=== PATIENT | female | born 1975 | race Caucasian/White ===

== ENCOUNTER 2021-10-14 22:29 | Inpatient (IN) ==
[2021-10-14] MEDS ORDERED: LABETALOL 20 MG/4 ML SYRINGE IV STA (22:53)
[2021-10-14 22:58] LABS: Basophils % 0.4 % (0.0-0.8); Eosinophils # 0.3 10*3/uL (0.0-0.87); Eosinophils % 3.1 % (0.00-10.9); Hematocrit 33.7 VOL% (35.7-47.0); Hemoglobin 10.6 GM/DL (12.0-16.0); Immature Granulocytes % 0.2 %; Immature Granulocytes Absolute 0.02 #; Lymphocytes # 2.5 10*3/uL (1.4-4.0); Lymphocytes % 25.1 % (21.3-54.2); Mean Corpuscular HGB Conc 31.5 GM/DL (32-36); Mean Corpuscular Volume 78.2 FL (87-102); Monocytes # 0.8 10*3/uL (0.11-0.8); Neutrophils % 63.2 % (38.7-73.9); Platelet Count 273 T/CUMM (130-400); Red Blood Count 4.31 MC/CUMM (3.8-5.5); Red Cell Distribution Width 17.7 % (9.3-17.3); White Blood Count 9.9 T/CUMM (4-12)
[2021-10-14 23:27] LABS: INR 3.1; PT Patient Result 31.9 SECS (10.5-12.0); Partial Thromboplastin Time 48.7 SECS (23.7-32.9)
[2021-10-14 23:30] LABS: Bacteria,Urine Occasional /HPF (Few); RBC,Urine 1223 /HPF (0-4); Squamous Epithelial Cell,Urine Occasional /HPF (0-10)
[2021-10-14 23:31] LABS: Bilirubin,Urine Negative (Negative); Blood, Urine Large mg/dL (Negative); Glucose,Urine (UA) Negative (Negative); Ketones,Urine Negative (Negative); Nitrite,Urine Negative (Negative); Protein,Urine >=300 mg/dL (Negative); Urine Appearance Clear (Clear); Urine Color Dark yellow (Yellow); Urine Urobilinogen 0.2 eU/dL (<2.0)
[2021-10-14] MEDS ORDERED: ONDANSETRON 4 MG/2 ML VIAL IV ONE (23:36)
[2021-10-14] MEDS ORDERED: MORPHINE 2 MG/1 ML SYRINGE IV STA (23:36)
[2021-10-14 23:41] LABS: Bilirubin,Total 0.5 MG/DL (0.20-1.00); Calcium 8.2 MG/DL (8.5-10.1); Osmolality,Calculated 281.1 MOS/KG (273-304); Potassium 3.1 MMOL/L (3.5-5.1); Total Protein 6.8 G/DL (6.4-8.2)
[2021-10-14] MEDS ORDERED: POTASSIUM CHLORIDE 20 MEQ TABLET PO STA (23:46)
[2021-10-14] MEDS ORDERED: hydrALAZINE 20 MG/1 ML VIAL IV STA (23:47)
[2021-10-15] MEDS ORDERED: POTASSIUM CHLORIDE 20 MEQ TABLET PO STA (00:33)
[2021-10-15] MEDS ORDERED: GLUCAGON 1 MG VIAL IM PRN (01:20)
[2021-10-15] MEDS ORDERED: LACTATED RINGERS 1,000 ML IV SCH (01:30)
[2021-10-15] MEDS ORDERED: DEXTROSE 10% 250 ML BAG IV PRN (01:40)
[2021-10-15] MEDS ORDERED: hydrALAZINE 20 MG/1 ML VIAL IV PRN (01:48)
[2021-10-15 06:09] LABS: Basophils # 0.1 10*3/uL (0.0-0.2); Basophils % 0.5 % (0.0-0.8); Eosinophils # 0.2 10*3/uL (0.0-0.87); Eosinophils % 2.3 % (0.00-10.9); Hematocrit 32.4 VOL% (35.7-47.0); Immature Granulocytes % 0.3 %; Immature Granulocytes Absolute 0.03 #; Lymphocytes # 1.7 10*3/uL (1.4-4.0); Lymphocytes % 15.8 % (21.3-54.2); Mean Corpuscular HGB Conc 30.9 GM/DL (32-36); Mean Corpuscular Volume 78.6 FL (87-102); Mean Platelet Volume 11.8 FL (9.6-12.0); Monocytes # 0.8 10*3/uL (0.11-0.8); Monocytes % 7.5 % (1.7-12.7); Neutrophils % 73.6 % (38.7-73.9); Platelet Count 262 T/CUMM (130-400); Red Blood Count 4.12 MC/CUMM (3.8-5.5); Red Cell Distribution Width 17.7 % (9.3-17.3); White Blood Count 10.7 T/CUMM (4-12)
[2021-10-15 06:34] LABS: Alanine Aminotransferase 23 U/L (13-56); Albumin 2.8 G/DL (3.4-5.0); Alkaline Phosphatase 115 U/L (45-117); Aspartate Amino Transferase 31 U/L (0-37); Blood Urea Nitrogen 10 MG/DL (7-18); Calcium 8.3 MG/DL (8.5-10.1); Carbon Dioxide 26 MMOL/L (21-32); Chloride 107 MMOL/L (98-107); Glucose 95 MG/DL (74-106); Osmolality,Calculated 281.1 MOS/KG (273-304); Potassium 2.8 MMOL/L (3.5-5.1); Sodium 142 MMOL/L (136-145); Total Protein 6.9 G/DL (6.4-8.2)
[2021-10-15] MEDS: LEVOTHYROXINE 75 MCG TABLET PO SCH (06:34)
[2021-10-15] MEDS ORDERED: carvediloL 3.125 MG TABLET PO SCH (09:00)
[2021-10-15] MEDS ORDERED: lisinopriL 2.5 MG TABLET PO SCH (09:00)
[2021-10-15] MEDS ORDERED: lisinopriL 2.5 MG TABLET PO ONE (09:16)
[2021-10-15] MEDS: POTASSIUM BICARB EFFERVESCENT 20 MEQ TAB.EFF PO SCH ×2 (10:14→18:56)
[2021-10-15] MEDS: CITALOPRAM 20 MG TABLET PO SCH (10:15)
[2021-10-15] MEDS: SPIRONOLACTONE 25 MG TABLET PO SCH ×2 (10:15→22:02)
[2021-10-15] MEDS: carvediloL 12.5 MG TABLET PO SCH ×2 (10:15→22:02)
[2021-10-15] MEDS ORDERED: ONDANSETRON 4 MG/2 ML VIAL IV PRN (10:41)
[2021-10-15] MEDS ORDERED: WARFARIN 7.5 MG TABLET PO SCH (18:00)
[2021-10-15] MEDS: POTASSIUM CHLORIDE 20 MEQ TABLET PO PRN (18:56)
[2021-10-16] MEDS: POTASSIUM CHLORIDE 20 MEQ TABLET PO PRN (00:11)
[2021-10-16] MEDS: POTASSIUM BICARB EFFERVESCENT 20 MEQ TAB.EFF PO SCH (01:27)
[2021-10-16 05:10] LABS: Basophils # 0.1 10*3/uL (0.0-0.2); Basophils % 0.6 % (0.0-0.8); Eosinophils # 0.3 10*3/uL (0.0-0.87); Eosinophils % 3.5 % (0.00-10.9); Hemoglobin 9.4 GM/DL (12.0-16.0); Immature Granulocytes % 0.6 %; Immature Granulocytes Absolute 0.05 #; Lymphocytes # 2.4 10*3/uL (1.4-4.0); Lymphocytes % 26.9 % (21.3-54.2); Mean Corpuscular HGB Conc 30.3 GM/DL (32-36); Mean Corpuscular Volume 80.1 FL (87-102); Mean Platelet Volume 11.8 FL (9.6-12.0); Monocytes # 0.7 10*3/uL (0.11-0.8); Monocytes % 7.3 % (1.7-12.7); Neutrophils % 61.1 % (38.7-73.9); Platelet Count 237 T/CUMM (130-400); Red Blood Count 3.87 MC/CUMM (3.8-5.5); White Blood Count 8.9 T/CUMM (4-12)
[2021-10-16 05:16] LABS: INR 2.6; PT Patient Result 26.9 SECS (10.5-12.0)
[2021-10-16 05:26] LABS: Albumin 2.7 G/DL (3.4-5.0); Bilirubin,Total 0.4 MG/DL (0.20-1.00); Calcium 8.2 MG/DL (8.5-10.1); Osmolality,Calculated 277.4 MOS/KG (273-304); Potassium 3.2 MMOL/L (3.5-5.1); Total Protein 6.2 G/DL (6.4-8.2)
[2021-10-16 05:41] LABS: Free T4 (Free Thyroxine) 1.24 NG/DL (0.76-1.46); Thyroid Stimulating Hormone 7.18 uIU/ml (0.358-3.74)
[2021-10-16] MEDS: LEVOTHYROXINE 75 MCG TABLET PO SCH (07:08)
[2021-10-16] MEDS: carvediloL 12.5 MG TABLET PO SCH (08:59)
[2021-10-16] MEDS: CITALOPRAM 20 MG TABLET PO SCH (08:59)
[2021-10-16] MEDS: SPIRONOLACTONE 25 MG TABLET PO SCH (08:59)
[2021-10-16] MEDS ORDERED: lisinopriL 5 MG TABLET PO SCH (09:00)
[2021-10-16] MEDS ORDERED: amLODIPine 5 MG TABLET PO SCH (09:00)
[2021-10-16] MEDS ORDERED: amLODIPine 10 MG TABLET PO SCH (09:00)
[2021-10-16 12:13] VITALS: BP 149/79
== END 2021-10-16 13:03 | disposition home or self-care (01) | DRG 305 ==
LOC: N.EDINP 22:29 → N.ED 22:29 → SUATTDRO 10-15 01:20 → N.EDINP 10-15 03:00 → N.TELEN 10-15 03:54 → SUATTDRO 10-15 08:32
PROVIDERS: ADMIT Family Medicine; ATTEND Emergency Medicine

== ENCOUNTER 2021-12-04 19:13 | Inpatient (IN) ==
[2021-12-04] MEDS ORDERED: ONDANSETRON 4 MG/2 ML VIAL IV PRN (20:11)
[2021-12-04] MEDS ORDERED: ALUMINUM/MAGNES/SIMETH MAX STR 30 ML UDCUP PO PRN (20:11)
[2021-12-04] MEDS ORDERED: ACETAMINOPHEN 325 MG TABLET PO PRN (20:11)
[2021-12-04] MEDS ORDERED: DEXTROSE 10% 250 ML BAG IV PRN (20:11)
[2021-12-04] MEDS ORDERED: hydrALAZINE 20 MG/1 ML VIAL IV PRN (20:11)
[2021-12-04] MEDS ORDERED: GLUCAGON 1 MG VIAL IM PRN (20:11)
[2021-12-04] MEDS ORDERED: VANCOMYCIN INJ 1,500 MG in SODIUM CHLORIDE 0.9% 500 ML IV PRN (21:00)
[2021-12-04] MEDS ORDERED: FUROSEMIDE 40 MG/4 ML VIAL IV SCH (21:08)
[2021-12-04 21:15] LABS: Basophils # 0.1 10*3/uL (0.0-0.2); Basophils % 0.2 % (0.0-0.8); Eosinophils # 0.1 10*3/uL (0.0-0.87); Eosinophils % 0.2 % (0.00-10.9); Hematocrit 25.9 VOL% (35.7-47.0); Immature Granulocytes % 1.7 %; Immature Granulocytes Absolute 0.54 #; Lymphocytes # 3.5 10*3/uL (1.4-4.0); Lymphocytes % 11.2 % (21.3-54.2); Mean Corpuscular HGB Conc 30.9 GM/DL (32-36); Mean Corpuscular Volume 83.8 FL (87-102); Mean Platelet Volume 12.1 FL (9.6-12.0); Monocytes # 2.3 10*3/uL (0.11-0.8); Monocytes % 7.5 % (1.7-12.7); Neutrophils % 79.2 % (38.7-73.9); Platelet Count 286 T/CUMM (130-400); Red Blood Count 3.09 MC/CUMM (3.8-5.5); Red Cell Distribution Width 18.1 % (9.3-17.3)
[2021-12-04 21:32] LABS: INR 2.8; PT Patient Result 28.7 SECS (10.1-12.1)
[2021-12-04 21:40] LABS: Calcium 8.6 MG/DL (8.5-10.1); Osmolality,Calculated 274.2 MOS/KG (273-304); Potassium 5.5 MMOL/L (3.5-5.1); Thyroid Stimulating Hormone 1.91 uIU/ml (0.358-3.74)
[2021-12-04 21:45] LABS: Lymphocytes 12 % (20-55); Total Cells Counted 100
[2021-12-04 21:47] LABS: Ovalocytes Slight
[2021-12-04 21:52] LABS: Platelet Estimate Normal
[2021-12-04] MEDS ORDERED: VANCOMYCIN INJ 2,000 MG in SODIUM CHLORIDE 0.9% 500 ML IV ONE (21:53)
[2021-12-04] MEDS ORDERED: MEROPENEM 2,000 MG in SODIUM CHLORIDE 0.9% 100 ML IV SCH (22:00)
[2021-12-04] MEDS: carvediloL 12.5 MG TABLET PO SCH (22:06)
[2021-12-04] MEDS: DOCUSATE SODIUM 100 MG CAPSULE PO SCH (22:06)
[2021-12-04] MEDS ORDERED: VANCOMYCIN INJ 2,500 MG in SODIUM CHLORIDE 0.9% 500 ML IV ONE (23:00)
[2021-12-04] MEDS: MEROPENEM 500 MG in SODIUM CHLORIDE 0.9% 100 ML IV SCH (23:03)
[2021-12-05] MEDS: ALBUTEROL 2.5 MG/3 ML NEB RESP TX SCH ×5 (00:37→18:44)
[2021-12-05] MEDS ORDERED: VANCOMYCIN INJ 1,500 MG in SODIUM CHLORIDE 0.9% 250 ML IV PRN (01:00)
[2021-12-05] MEDS ORDERED: ALBUTEROL 2.5 MG/3 ML NEB RESP TX SCH (01:00)
[2021-12-05 01:54] LABS: Arterial Base Excess iSTAT -5 MMOL/L (-2.5-2.5); Arterial Bicarbonate iSTAT 18.2 MMOL/L (20-26); Arterial O2 Saturation iSTAT 97 % (95-100); Arterial PCO2 iSTAT 27 MM HG (35-48); Arterial PO2 iSTAT 90 MM HG (80-95); Arterial Total CO2 iSTAT 19 MMO/L (23-27); Arterial pH iSTAT 7.434 (7.35-7.45)
[2021-12-05] MEDS ORDERED: FUROSEMIDE INJ 200 MG in SODIUM CHLORIDE 0.9% 50 ML IV ONE (02:22)
[2021-12-05 04:21] LABS: Basophils % 0.1 % (0.0-0.8); Hematocrit 24.3 VOL% (35.7-47.0); Hemoglobin 7.4 GM/DL (12.0-16.0); Immature Granulocytes % 1.4 %; Immature Granulocytes Absolute 0.34 #; Lymphocytes % 12.6 % (21.3-54.2); Mean Corpuscular HGB Conc 30.5 GM/DL (32-36); Mean Corpuscular Volume 83.5 FL (87-102); Monocytes # 1.8 10*3/uL (0.11-0.8); Monocytes % 7.5 % (1.7-12.7); Neutrophils % 78.4 % (38.7-73.9); Platelet Count 249 T/CUMM (130-400); Red Blood Count 2.91 MC/CUMM (3.8-5.5); Red Cell Distribution Width 18.2 % (9.3-17.3); White Blood Count 23.9 T/CUMM (4-12)
[2021-12-05 04:31] LABS: INR 2.9; PT Patient Result 30.1 SECS (10.1-12.1)
[2021-12-05 04:41] LABS: Hypochromia Slight; Lymphocytes 13 % (20-55); Microcytosis Slight; Platelet Estimate Adequate; Total Cells Counted 100
[2021-12-05 05:01] LABS: Vitamin B12 719 PG/ML (211-911)
[2021-12-05 05:47] LABS: Sedimentation Rate-Westergren 134 MM/HR (0-20)
[2021-12-05] MEDS: LEVOTHYROXINE 75 MCG TABLET PO SCH (06:24)
[2021-12-05 08:34] LABS: Calcium 8.5 MG/DL (8.5-10.1); Osmolality,Calculated 275.2 MOS/KG (273-304); Potassium 5.6 MMOL/L (3.5-5.1)
[2021-12-05] MEDS: carvediloL 12.5 MG TABLET PO SCH ×2 (08:48→16:29)
[2021-12-05] MEDS: ASPIRIN 325 MG TABLET PO SCH (08:48)
[2021-12-05] MEDS: DOCUSATE SODIUM 100 MG CAPSULE PO SCH ×2 (08:48→20:55)
[2021-12-05] MEDS ORDERED: PANTOPRAZOLE 40 MG TABLET PO SCH (09:00)
[2021-12-05] MEDS ORDERED: CITALOPRAM 20 MG TABLET PO SCH (09:00)
[2021-12-05] MEDS ORDERED: lisinopriL 5 MG TABLET PO SCH (09:00)
[2021-12-05] MEDS ORDERED: amLODIPine 10 MG TABLET PO SCH (09:00)
[2021-12-05 10:14] LABS: Hemoglobin A1 (Alkaline) 98.1 % (96.5-98.5); Hemoglobin A2 (Alkaline) 1.9 % (1.5-3.5)
[2021-12-05] MEDS: MEROPENEM 500 MG in SODIUM CHLORIDE 0.9% 100 ML IV SCH ×2 (10:15→23:31)
[2021-12-05 12:01] LABS: Arterial Base Excess iSTAT -8 MMOL/L (-2.5-2.5); Arterial Bicarbonate iSTAT 16.6 MMOL/L (20-26); Arterial O2 Saturation iSTAT 99 % (95-100); Arterial PCO2 iSTAT 28 MM HG (35-48); Arterial PO2 iSTAT 153 MM HG (80-95); Arterial Total CO2 iSTAT 17 MMO/L (23-27); Arterial pH iSTAT 7.389 (7.35-7.45)
[2021-12-05] MEDS ORDERED: SODIUM POLYSTYRENE SULFATE 15 GM/60 ML BOTTLE PO ONE (13:20)
[2021-12-05 13:55] LABS: Hepatitis B Core IgM Quant 0.17 Index; Hepatitis B Surface Ag Quant < 0.10 Index; Hepatitis B Surface Ag Result Non-Reactive (NonReactive); Hepatitis C Virus Ab Quant 0.73 Index; Hepatitis C Virus Ab Result Non-Reactive (NonReactive)
[2021-12-05] MEDS ORDERED: SODIUM CHLORIDE 0.9% 500 ML IV ONE (15:08)
[2021-12-05 15:14] LABS: % Iron Saturation 22.9 % (18-50)
[2021-12-05] MEDS ORDERED: ATROPINE 1 MG/10 ML SYRINGE IV ONE (15:28)
[2021-12-05] MEDS ORDERED: MIDAZOLAM 10 MG/2 ML VIAL ONE ×2 (15:30→15:52)
[2021-12-05] MEDS: DOPamine 800 MG/250 ML PREMIX IV PRN ×2 (15:30→21:09)
[2021-12-05] MEDS ORDERED: ETOMIDATE 20 MG/10 ML VIAL IV ONE ×3 (15:30→15:37)
[2021-12-05] MEDS ORDERED: MIDAZOLAM 2 MG/2 ML VIAL IV ONE ×4 (15:36→15:59)
[2021-12-05] MEDS ORDERED: CALCIUM CHLORIDE 1,000 MG/10 ML SYRINGE IV ONE ×2 (16:00→16:13)
[2021-12-05 16:02] LABS: ABG Base Excess -13.1 MMOL/L (-2.5-2.5); ABG HCO3 14.3 MMOL/L (20-26); ABG Oxygen Saturation 98.3 % (95-100); ABG PCO2 33.9 MM HG (35-48); ABG PH 7.219 (7.35-7.45); ABG TCO2 12.9 MMOL/L (23-27)
[2021-12-05 16:03] LABS: Basophils % 0.1 % (0.0-0.8); Hematocrit 23.5 VOL% (35.7-47.0); Hemoglobin 7.1 GM/DL (12.0-16.0); Immature Granulocytes % 3.3 %; Immature Granulocytes Absolute 0.74 #; Lymphocytes # 2.7 10*3/uL (1.4-4.0); Lymphocytes % 11.8 % (21.3-54.2); Mean Corpuscular HGB Conc 30.2 GM/DL (32-36); Mean Corpuscular Volume 85.1 FL (87-102); Mean Platelet Volume 12.2 FL (9.6-12.0); Monocytes # 1.9 10*3/uL (0.11-0.8); Monocytes % 8.6 % (1.7-12.7); Neutrophils % 76.2 % (38.7-73.9); Platelet Count 224 T/CUMM (130-400); Red Blood Count 2.76 MC/CUMM (3.8-5.5); Red Cell Distribution Width 18.4 % (9.3-17.3); White Blood Count 22.5 T/CUMM (4-12)
[2021-12-05] MEDS ORDERED: SODIUM BICARBONATE 50 MEQ/50 ML VIAL IV ONE ×3 (16:06→16:57)
[2021-12-05] MEDS ORDERED: fentaNYL 100 MCG/2 ML VIAL IV ONE (16:08)
[2021-12-05] MEDS ORDERED: fentaNYL 100 MCG/2 ML VIAL ONE (16:08)
[2021-12-05] MEDS ORDERED: PHENYLEPHRINE DRIP 40 MG/250 ML PREMIX IV ONE (16:11)
[2021-12-05] MEDS: PHENYLEPHRINE DRIP 40 MG/250 ML PREMIX IV PRN (16:13)
[2021-12-05] MEDS: MIDAZOLAM 100 MG in SODIUM CHLORIDE 0.9% 80 ML IV PRN (16:15)
[2021-12-05 16:19] LABS: Bilirubin,Direct 0.31 MG/DL (0.0-0.20)
[2021-12-05 16:22] LABS: Anisocytosis 1+; Band Neutrophils 11 % (0-10); Eosinophils 1 % (0-10); Lymphocytes 12 % (20-55); Platelet Estimate Normal; Total Cells Counted 100
[2021-12-05 16:23] LABS: Hypochromia 1+
[2021-12-05 16:50] LABS: Albumin 1.6 G/DL (3.4-5.0); Bilirubin,Total 0.9 MG/DL (0.20-1.00); Calcium 7.8 MG/DL (8.5-10.1); Total Protein 5.7 G/DL (6.4-8.2)
[2021-12-05 16:51] LABS: Osmolality,Calculated 286.1 MOS/KG (273-304)
[2021-12-05] MEDS ORDERED: INSULIN REGULAR 10 UNIT, CALCIUM GLUCONATE 1,000 MG in DEXTROSE 10% 250 ML IV ONE (16:52)
[2021-12-05] MEDS ORDERED: AMIODARONE 450 MG/9 ML VIAL IV ONE (17:00)
[2021-12-05] MEDS ORDERED: AMIODARONE INJ 300 MG in DEXTROSE 5% 100 ML IV ONE (17:00)
[2021-12-05] MEDS ORDERED: SODIUM POLYSTYRENE SULFATE 15 GM/60 ML BOTTLE PO STA (17:13)
[2021-12-05] MEDS: fentaNYL INJ 1,250 MCG in SODIUM CHLORIDE 0.9% 225 ML IV PRN (17:13)
[2021-12-05] MEDS ORDERED: ALBUMIN 25% 25 GM/100 ML VIAL IV ONE (17:23)
[2021-12-05] MEDS ORDERED: AMIODARONE INJ 450 MG in DEXTROSE 5% 241 ML IV SCH (17:30)
[2021-12-05] MEDS ORDERED: WARFARIN 7.5 MG TABLET PO SCH (18:00)
[2021-12-05] MEDS ORDERED: HEPARIN 10,000 UNIT/10 ML VIAL IV SCH (21:00)
[2021-12-05 22:12] LABS: ABG Base Excess -2.6 MMOL/L (-2.5-2.5); ABG HCO3 22.2 MMOL/L (20-26); ABG Oxygen Saturation 99.2 % (95-100); ABG PCO2 43.7 MM HG (35-48); ABG PH 7.332 (7.35-7.45); ABG TCO2 21.7 MMOL/L (23-27)
[2021-12-05] MEDS: AMIODARONE INJ 450 MG in DEXTROSE 5% 241 ML IV SCH (23:19)
[2021-12-06] MEDS: ALBUTEROL 2.5 MG/3 ML NEB RESP TX SCH ×3 (01:11→14:00)
[2021-12-06] MEDS: MIDAZOLAM 100 MG in SODIUM CHLORIDE 0.9% 80 ML IV PRN (01:22)
[2021-12-06] MEDS: fentaNYL INJ 1,250 MCG in SODIUM CHLORIDE 0.9% 225 ML IV PRN ×2 (01:31→10:05)
[2021-12-06] MEDS: AMIODARONE INJ 450 MG in DEXTROSE 5% 241 ML IV SCH ×2 (02:18→09:01)
[2021-12-06] MEDS: PHENYLEPHRINE DRIP 40 MG/250 ML PREMIX IV PRN ×2 (03:34→09:27)
[2021-12-06 03:38] VITALS: BP 90/54
[2021-12-06] MEDS: DOPamine 800 MG/250 ML PREMIX IV PRN ×4 (03:42→14:33)
[2021-12-06 03:55] LABS: ABG Base Excess -4.1 MMOL/L (-2.5-2.5); ABG Oxygen Saturation 98.6 % (95-100); ABG PCO2 48.5 MM HG (35-48); ABG PH 7.276 (7.35-7.45); ABG TCO2 21.6 MMOL/L (23-27); Basophils % 0.2 % (0.0-0.8); Hematocrit 22.6 VOL% (35.7-47.0); Immature Granulocytes % 1.8 %; Immature Granulocytes Absolute 0.36 #; Lymphocytes # 4.6 10*3/uL (1.4-4.0); Lymphocytes % 22.3 % (21.3-54.2); Mean Corpuscular Volume 83.4 FL (87-102); Mean Platelet Volume 12.1 FL (9.6-12.0); Monocytes # 1.9 10*3/uL (0.11-0.8); Monocytes % 9.4 % (1.7-12.7); NRBC # 0.11 10*3/uL; Neutrophils % 66.3 % (38.7-73.9); Platelet Count 264 T/CUMM (130-400); Red Blood Count 2.71 MC/CUMM (3.8-5.5); Red Cell Distribution Width 18.1 % (9.3-17.3); White Blood Count 20.6 T/CUMM (4-12)
[2021-12-06 04:05] LABS: INR 4.5
[2021-12-06] MEDS ORDERED: SODIUM BICARBONATE 50 MEQ/50 ML VIAL IV ONE ×3 (04:14→13:13)
[2021-12-06 04:15] LABS: Band Neutrophils 1 % (0-10); Hypochromia Slight; Lymphocytes 27 % (20-55); Total Cells Counted 100
[2021-12-06 04:16] LABS: Microcytosis 1+; Ovalocytes Slight; Platelet Estimate Normal
[2021-12-06 04:29] LABS: Albumin 1.6 G/DL (3.4-5.0); Bilirubin,Total 0.8 MG/DL (0.20-1.00); Potassium 5.4 MMOL/L (3.5-5.1); Risk Ratio 4.35; Total Protein 5.8 G/DL (6.4-8.2)
[2021-12-06] MEDS: LEVOTHYROXINE 75 MCG TABLET PO SCH (05:10)
[2021-12-06 05:23] LABS: ABG Base Excess -2.3 MMOL/L (-2.5-2.5); ABG HCO3 22.5 MMOL/L (20-26); ABG Oxygen Saturation 98.7 % (95-100); ABG PCO2 40.6 MM HG (35-48); ABG TCO2 21.7 MMOL/L (23-27)
[2021-12-06] MEDS ORDERED: ROSUVASTATIN 20 MG TABLET PO SCH (09:00)
[2021-12-06] MEDS ORDERED: PANTOPRAZOLE 40 MG VIAL IV SCH (09:00)
[2021-12-06] MEDS: DOCUSATE SODIUM 100 MG CAPSULE PO SCH (09:01)
[2021-12-06] MEDS: ASPIRIN 325 MG TABLET PO SCH (09:01)
[2021-12-06] MEDS: carvediloL 12.5 MG TABLET PO SCH (09:01)
[2021-12-06] MEDS ORDERED: PHENYLEPHRINE INJ 160 MG in SODIUM CHLORIDE 0.9% 234 ML IV PRN (09:25)
[2021-12-06 10:14] LABS: ABG Base Excess -6.7 MMOL/L (-2.5-2.5); ABG HCO3 18.8 MMOL/L (20-26); ABG Oxygen Saturation 95.4 % (95-100); ABG PCO2 36.3 MM HG (35-48); ABG PH 7.321 (7.35-7.45); ABG PO2 94.4 MM HG (80-95); ABG TCO2 17.7 MMOL/L (23-27)
[2021-12-06] MEDS ORDERED: HYDROCORTISONE 100 MG VIAL IV SCH (10:30)
[2021-12-06] MEDS ORDERED: VASOPRESSIN 100 UNITS in SODIUM CHLORIDE 0.9% 95 ML IV PRN (10:36)
[2021-12-06] MEDS ORDERED: SODIUM CHLORIDE 0.9% 1,000 ML IV PRN (10:52)
[2021-12-06 11:24] LABS: Calcium 7.7 MG/DL (8.5-10.1); Osmolality,Calculated 283.4 MOS/KG (273-304)
[2021-12-06] MEDS ORDERED: SODIUM POLYSTYRENE SULFATE 15 GM/60 ML BOTTLE PO STA (11:32)
[2021-12-06] MEDS ORDERED: CALCIUM GLUCONATE 2,000 MG in SODIUM CHLORIDE 0.9% 100 ML IV ONE (12:00)
[2021-12-06] MEDS ORDERED: ALBUMIN 25% 25 GM/100 ML VIAL IV ONE ×2 (12:39→12:41)
[2021-12-06] MEDS ORDERED: MORPHINE 2 MG/1 ML SYRINGE ONE (14:45)
[2021-12-06] MEDS ORDERED: DIAZEPAM 10 MG/2 ML SYRINGE ONE (14:46)
[2021-12-06] MEDS ORDERED: DIAZEPAM 10 MG/2 ML SYRINGE IV ONE (14:49)
[2021-12-06] MEDS ORDERED: MORPHINE 2 MG/1 ML SYRINGE IV ONE (14:49)
[2021-12-06] MEDS ORDERED: MEROPENEM 500 MG in SODIUM CHLORIDE 0.9% 100 ML IV SCH (17:00)
== END 2021-12-06 15:08 | disposition expired ==
LOC: N.TELES 19:13 → SUATTDRO 19:13 → N.CC 23:56
PROVIDERS: ADMIT Emergency Medicine; ATTEND Internal Medicine